=== PATIENT | male | born 1980 | race Caucasian/White ===

== ENCOUNTER 2025-02-06 07:42 | Emergency (ER) | payer OTHER, SELFPAY ==
[2025-02-06 07:46] VITALS: BP 158/93
--- NOTE | 2025-02-06 08:12 | ED.GENMED ---
History of Present Illness
General
Chief Complaint: Breathing Problem
Source: patient
Exam Limitations: none
Time Seen by Provider: 02/06/25 08:01
Nursing documentation reviewed up to this point in time: agreed with
History of Present Illness
History of Present Illness:
44-year-old male presenting to the emergency department today with concerns of shortness of breath starting this morning. Seems to be worse with ambulation. Denies specific chest pain but feels a slight heaviness in the general sense to his
thoracic region. Denies similar symptoms in the past no history of asthma. No recent illnesses no fevers.
Review of Systems
Review of Systems
Allergies reviewed?: Yes
All Other Systems: ROS reviewed and negative except as documented in HPI and ROS
Phy Exam
Physical Exam
Physical Exam:
GENERAL: Alert , in no apparent distress
EYE: pupils equal and reactive
NECK: Supple, no significant adenopathy.
ENT: o/p clr, mmm.
CARDIAC: Regular rate and rhythm .
LUNGS: Diffuse expiratory wheezing decreased lung sounds diffusely
ABDOMEN: Soft, without focal tenderness, no r/g, no cvat
NEUROLOGICAL: Alert and oriented, no focal neuro deficits
SKIN: Warm and dry, skin intact.
MUSCULOSKELETAL: No edema, well perfused.
PSYCH: Normal and appropriate interaction.
Scores
Heart Failure Risk
Heart Failure Risk Score: Not Applicable
Course
Orders/Labs/Results
Orders:
Orders
02/06/25 07:45
Electrocardiogram (*1) Urgent
Reason for Study: Shortness of Breath
EKG- Treatment ONCE
02/06/25 08:05
Dexamethasone Sod Phosphate [Decadron] 10 mg IV NOW STA
Ipratropium/Albuterol Sulfate [Duoneb] 3 ml INH R NOW STA
CR Chest - 2 Views Urgent
Comment:
Reason For Exam: sob
02/06/25 08:12
Complete Blood Count/With Diff Urgent
Comprehensive Metabolic Panel Urgent
NT-proBNP Urgent
02/06/25 09:11
Azithromycin [Zithromax] 500 mg PO NOW STA
CefTRIAXone [Rocephin] 2,000 mg IV NOW STA
Ipratropium/Albuterol Sulfate [Duoneb] 3 ml INH R NOW ONE
02/06/25 09:17
Sterile Water [Sterile Water For Injection] 20 ml .ROUTE .STK-MED
Abnormal Lab Results
02/06/25
08:12
Absolute Neuts (auto) 6.9 H 10^3/uL
(1.4-6.5)
Absolute Monos (auto) 0.8 H 10^3/uL
(0.1-0.6)
Neutrophils % 76.3 H %
(42.2-75.2)
Lymphocytes % 13.4 L %
(20.5-51.1)
ALT 66 H U/L
(0-50)
02/06/25 08:12
02/06/25 08:12
Vital Signs
Initial and Last Documented VS:
Initial Vital Signs
Temp Pulse Resp BP Pulse Ox
97.8 F 68 16 158/93 98
02/06/25 07:46 02/06/25 07:46 02/06/25 07:46 02/06/25 07:46 02/06/25 07:46
Last Documented Vital Signs
Temp Pulse Resp BP Pulse Ox
97.8 F 83 19 139/74 98
02/06/25 07:46 02/06/25 10:30 02/06/25 10:30 02/06/25 10:30 02/06/25 10:30
MDM/Problems Addressed
MDM/Problems Addressed:
44-year-old male presenting to the emergency department today with concerns of shortness of breath. Found to have diffuse expiratory wheezing here. Vital signs are normal but patient does appear to be somewhat short of breath. Patient started on
DuoNeb and steroids. Patient with significant improvement after receiving DuoNeb and steroid. Chest x-ray was performed that did show potential consolidation to the right upper lobe. This does not obviously fit patient's clinical syndrome but was
started on an antibiotic just in case there was a brewing pneumonia. Otherwise he was treated with a second DuoNeb had further improvement. Was ambulated and he claimed that he was feeling much better at this point pulse ox staying in the high
90s. Patient does appear stable for close outpatient follow-up. Return precautions given.
*Critical Care Note
Total Time (30-74mins, 75-104mins- exclusive of procedures): Not Applicable
ED Attending Note
-
Portions of this chart may have been created with voice recognition software.� Occasional wrong word or��sound alike� substitutions may have occurred due to the inherent limitations of voice recognition software.
Discharge Plan
Departure
Patient Disposition: Home (Routine Discharge)
Date of Disposition: 02/06/25
Time of Disposition: 11:10
Patient with high blood pressure during this ER visit?: No
Condition: Good
Covid-19: Not Applicable
Discharge Problem:
Wheeze, Pneumonia
Instructions: Pneumonia in adults, Asthma, Adult (DC)
Prescriptions:
New
albuterol sulfate 90 mcg/actuation HFA aerosol inhaler
2 puff inhalation Q6H PRN (Reason: shortness of breath or wheezing) Qty: 8.5 0RF
prednisone 20 mg tablet
40 mg PO DAILY 4 Days Qty: 8 0RF
azithromycin 500 mg tablet
500 mg PO DAILY 2 Days Qty: 2 0RF
cefdinir 300 mg capsule
300 mg PO BID 7 Days Qty: 14 0RF
Referrals:
[facility] [Provider Group] - Follow up in 5-7 days
NONE,* [Family Provider] -
Activity Restrictions/Additional Instructions:
You came to the emergency department today with concerns of shortness of breath. You are found to have a diffuse wheeze consistent with an asthma-like reaction. You were given steroids and breathing treatments with significant improvement of
symptoms. He also had a chest x-ray that showed possible pneumonia. You are started on antibiotics here. Please take the prescribed antibiotics over the next week. Please also take the steroids as prescribed 40 mg once daily for the next 4 days.
Please use the albuterol as needed, which should be less frequently over the next few days. Please follow close with the primary care doctor within 1 week for reassessment to ensure symptoms are improving and potentially consider repeated chest
x-ray. Return immediately for any worsening, new or concerning symptoms.
Interventions
Interventions:
*Risk Screen - Suicide Last Done: 02/06/25 07:46
*General Assessment Last Done: 02/06/25 08:30
*Neglect/Abuse Screening Last Done: 02/06/25 07:46
*ED- Fall Risk Assessment Last Done: 02/06/25 11:20
*ED COVID-19 Vaccine History Last Done: 02/06/25 08:30
*Nursing Disposition Last Done: 02/06/25 11:20
ED- Cardiac Assessment Last Done: 02/06/25 08:30
ED- Pulmonary Assessment Last Done: 02/06/25 08:30
Discharge Date and Time
Discharge Date/Time: 02/06/25 11:21
Print Language: LITHUAN[place]
[2025-02-06] MEDS: DUONEB 3 ML INH ×2 (08:13→09:23)
[2025-02-06] MEDS: DECADRON 10 MG IV (08:13)
[2025-02-06 08:22] LABS: % Basophils 0.3 % (0-2); % Eosinophils 0.7 % (0-6); % Immature Granulocytes 0.2 % (0-0.5); % Lymphocytes 13.4 % (20.5-51.1); % Monocytes 9.1 % (1.7-9.3); % Neutrophils 76.3 % (42.2-75.2); Absolute Eosinophils 0.1 10^3/uL (0-0.7); Absolute Lymphocytes 1.2 10^3/uL (1.2-3.4); Absolute Monocytes 0.8 10^3/uL (0.1-0.6); Absolute Neutrophils 6.9 10^3/uL (1.4-6.5); Hemoglobin 15.8 g/dL (13.0-18.0); Mean Corp Hgb Conc. 35.1 g/dL (33.0-37.0); Mean Corpuscular Volume 88.2 fL (80.0-94.0); Nucleated Red Blood Cells % 0 % (-); Platelet Count 214 10^3/uL (130-400); Red Cell Dist. Width 11.7 % (11.5-14.5); White Blood Cell Count 9.1 10^3/uL (4.8-10.8)
[2025-02-06 08:43] LABS: ALT (SGPT) 66 U/L (0-50); AST (SGOT) 38 U/L (17-59); Albumin 4.4 g/dl (3.5-5.0); Alkaline Phosphatase 66 U/L (38-126); Blood Urea Nitrogen 19 mg/dl (9-20); Calcium 9.6 mg/dl (8.4-10.2); Carbon Dioxide 26 mmol/L (22-30); Chloride 106 mmol/L (98-107); Glucose 98 mg/dl (70-99); Potassium 4.6 mmol/L (3.5-5.1); Sodium 140 mmol/L (135-145); Total Bilirubin 0.8 mg/dl (0.2-1.3); Total Protein 7.2 g/dl (6.3-8.2); eGFR > 60.00
[2025-02-06 09:00] VITALS: BP 143/62
[2025-02-06 09:09] VITALS: BP 143/62
[2025-02-06] MEDS: ZITHROMAX 500 MG PO (09:23)
[2025-02-06] MEDS: ROCEPHIN 2000 MG IV (09:23)
[2025-02-06 10:30] VITALS: BP 139/74
== END 2025-02-06 11:21 | disposition home or self-care (01) ==
LOC: EMR 07:42
PROVIDERS: Physician Assistant; EMERGENCY PHYSICIAN Emergency Medicine
DX: J18.9 Pneumonia, unspecified organism (principal); R06.2 Wheezing
CPT/HCPCS: 99285; 96374; 96375; 94640; 71046; 80053; 83880; 85025; 93005

== ENCOUNTER 2025-05-16 17:00 | Emergency (ER) | payer OTHER, SELFPAY ==
[2025-05-16 17:06] VITALS: BP 159/89
[2025-05-16 17:43] VITALS: BMI 35.0
--- NOTE | 2025-05-16 18:40 | ED.SKININJ ---
HPI-Injury
General
Chief Complaint: Skin Surface Trauma
Source: patient
Exam Limitations: none
Time Seen by Provider: 05/16/25 18:02
History of Present Illness-Injury
Initial Injury comments:
44-year-old male with avulsion type laceration to right ring finger he sustained today using a mandolin. He was unable to get stop bleeding at home. Last tetanus unknown. No other complaints
Phy Exam
Physical Exam
Physical Exam:
Skin: 1 cm avulsion laceration through the midportion of the nail and distal to the right ring finger. There is bleeding from the wound. No tendon or bone involvement
Neurologic exam: Good sensation right long finger
Course
Orders/Labs/Results
Orders:
Orders
05/16/25 18:02
Tetanus/Diphth/Acelpertussis [Adacel] 0.5 ml IM .ONCE ONE
Vital Signs
Initial and Last Documented VS:
Initial Vital Signs
Temp Pulse Resp BP Pulse Ox
97.6 F 61 18 159/89 96
05/16/25 17:06 05/16/25 17:06 05/16/25 17:06 05/16/25 17:06 05/16/25 17:06
Last Documented Vital Signs
Temp Pulse Resp BP Pulse Ox
97.6 F 61 18 159/89 96
05/16/25 17:06 05/16/25 17:06 05/16/25 17:06 05/16/25 17:06 05/16/25 17:06
MDM/Problems Addressed
Differential Diagnosis Includes:
Avulsion type laceration right ring finger. This was treated with saline irrigation and cauterization using silver nitrate. The tip of the finger was anesthetized with 1% lidocaine. A finger tourniquet was used to provide hemostasis during the
procedure. Total length of time of tourniquet was used approximately 4 minutes. Surgical foam and gauze dressing and a gauze wrap was applied. Tetanus vaccine updated
*Pulse Oximetry
SaO2: 96
Patient hypoxic: no
*Critical Care Note
Total Time (30-74mins, 75-104mins- exclusive of procedures): Not Applicable
ED Attending Note
-
Portions of this chart may have been created with voice recognition software.� Occasional wrong word or��sound alike� substitutions may have occurred due to the inherent limitations of voice recognition software.
Discharge Plan
Departure
Patient Disposition: Home (Routine Discharge)
Date of Disposition: 05/16/25
Time of Disposition: 18:41
Patient with high blood pressure during this ER visit?: No
Discharge Problem:
Laceration
Instructions: Wound Care (DC)
Prescriptions:
No Action
albuterol sulfate 90 mcg/actuation HFA aerosol inhaler
2 puff inhalation Q6H PRN (Reason: shortness of breath or wheezing) Qty: 8.5 0RF
prednisone 20 mg tablet
40 mg PO DAILY 4 Days Qty: 8 0RF
azithromycin 500 mg tablet
500 mg PO DAILY 2 Days Qty: 2 0RF
cefdinir 300 mg capsule
300 mg PO BID 7 Days Qty: 14 0RF
Referrals:
NONE,* [Family Provider, Internal Medicine]
Activity Restrictions/Additional Instructions:
Change dressing tomorrow and as needed after. Return if needed otherwise.
Interventions
Interventions:
*Risk Screen - Suicide Last Done: 05/16/25 17:07
*General Assessment Last Done: 05/16/25 17:43
*Neglect/Abuse Screening Last Done: 05/16/25 17:07
*ED- Fall Risk Assessment Last Done: 05/16/25 17:43
*ED COVID-19 Vaccine History Last Done: 05/16/25 17:43
ED-Skin Assessment Last Done: 05/16/25 17:43
Discharge Date and Time
Print Language: [place]
[2025-05-16] MEDS: ADACEL 0.5 ML IM (19:15)
== END 2025-05-16 19:51 | disposition home or self-care (01) ==
LOC: EMR 17:00
PROVIDERS: EMERGENCY PHYSICIAN Emergency Medicine
DX: S61.314A Laceration without foreign body of right ring finger with damage to nail, initial encounter (principal); W27.4XXA Contact with kitchen utensil, initial encounter; Z23 Encounter for immunization
CPT/HCPCS: 90471; 99282; 90715

== ENCOUNTER 2025-06-03 06:13 | Day surgery (SDC) | payer OTHER, SELFPAY ==
[2025-06-03 13:49] VITALS: BP 154/78
[2025-06-03 13:52] VITALS: BMI 35.5
[2025-06-03 13:53] VITALS: BMI 35.5
[2025-06-03 15:35] VITALS: BP 123/74
== END 2025-06-03 15:51 | disposition home or self-care (01) ==
LOC: SDS 06:13
PROVIDERS: ATTENDING PHYSICIAN Orthopaedic Surgery
DX: S61.314A Laceration without foreign body of right ring finger with damage to nail, initial encounter (principal); W45.8XXA Other foreign body or object entering through skin, initial encounter
CPT/HCPCS: 20240; 11760; 87070; 87075; 87205